=== PATIENT | male | born 1965 | race Caucasian/White ===

== ENCOUNTER 2016-10-18 12:53 | Emergency (ER) | payer SELFPAY ==
--- NOTE | 2016-10-18 13:45 | UC ---
Skin Complaint HPI - HPI Summary HPI Summary: SEVERAL DAYS AGO CUT LEFT 3RD FINGER WITH RAZOR. TODAY WAS WORKING WITH HYDROLIC FLUID, AREA BEGAN TO STING. SMALL DARK OBJECT, SLIVER NEAR SITE OF INJURY. TETANUS UTD TWO DAYS AGO - History of Current Complaint Chief Complaint: UCLaceration Time Seen by Provider: 10/18/16 13:12 Stated Complaint: HAND LACERATION Hx Obtained From: Patient Onset/Duration: Sudden Onset, Lasting Days, Resolved, Worse Since - TODAY Skin Exposure Onset/Duration: Days Ago Onset Severity: Mild Current Severity: Mild Location: Discrete - LEFT THIRD FINGER Character: Raised, Painful Aggravating: Nothing Alleviating: Nothing Associated Signs & Symptoms: Positive: Tenderness. Negative: Fever, Chills, Cough, Drainage, Red Streaks Related History: Trauma, Possible Reaction to: Environmental Exposure - Allergy/Home Medications Allergies/Adverse Reactions: Allergies Allergy/AdvReac Type Severity Reaction Status Date / Time No Known Allergies Allergy Verified 10/18/16 13:13 Review of Systems Constitutional: Negative Skin: Other - LEFT THIRD FINGER LUMP Eyes: Negative ENT: Negative Respiratory: Negative Cardiovascular: Negative Gastrointestinal: Negative Genitourinary: Negative Motor: Negative Neurovascular: Negative Musculoskeletal: Negative Neurological: Negative Psychological: Negative All Other Systems Reviewed And Are Negative: Yes PMH/Surg Hx/FS Hx/Imm Hx Previously Healthy: Yes - Surgical History Surgical History: None - Family History Known Family History: Negative: Blood Disorder - Social History Occupation: Employed Full-time Lives: With Family Alcohol Use: Rare Substance Use Type: None Smoking Status (MU): Never Smoked Tobacco Physical Exam Triage Information Reviewed: Yes Appearance: Well-Appearing, No Pain Distress, Well-Nourished Vital Signs: Initial Vital Signs Temp 97.6 F 10/18/16 13:14 Pulse 76 10/18/16 13:14 Resp 18 10/18/16 13:14 BP 138/101 10/18/16 13:14 Pulse Ox 99 10/18/16 13:14 Vital Signs Reviewed: Yes Eye Exam: Normal ENT Exam: Normal ENT: Positive: Normal ENT inspection, TMs normal Dental Exam: Normal Neck exam: Normal Respiratory Exam: Normal Respiratory: Positive: Chest non-tender, Lungs clear, Normal breath sounds, No respiratory distress, No accessory muscle use Cardiovascular Exam: Normal Cardiovascular: Positive: RRR, No Murmur, Pulses Normal Abdominal Exam: Normal Musculoskeletal: Positive: Strength Intact, ROM Intact, Edema @ - LEFT THIRD FINGER 1mm X 1mm RAISED AREA ON DISTAL RADIAL ASPECT OF LEFT THIRD FINGER WITH SMALL FB EVIDENT NEAR SURFACE WITH TRANSLUMINATION Neurological Exam: Normal Psychological Exam: Normal Skin: Positive: Other - LEFT THIRD FINGER 1mm X 1mm RAISED AREA ON DISTAL RADIAL ASPECT OF LEFT THIRD FINGER WITH SMALL FB EVIDENT NEAR SURFACE WITH TRANSLUMINATION - Additional Comments PROCEDURE: LEFT THIRD FINGER 1mm X 1mm RAISED AREA ON DISTAL RADIAL ASPECT OF LEFT THIRD FINGER WITH SMALL FB EVIDENT NEAR SURFACE WITH TRANSLUMINATION; FOREIGN BODY REMOVED USING SPLINTER FORCEPS SMALL AMOUNT OF PURULENT D/C FOLLOWED REMOVAL OF FB. DISCHARGE CULTURED. Course/Dx - Differential Diagnoses - Skin Complaint Differential Diagnoses: Abscess, Cellulitis, MRSA, Other - SOFT TISSUE FOREIGN BODY - Diagnoses Provider Diagnoses: SOFT TISSUE FOREIGN BODY REMOVED LEFT THIRD FINGER. >3 DAY OLD LACERATION 1CM LEFT THIRD FINGER NO REPAIR. CELLULITIS. Discharge - Discharge Plan Condition: Stable Disposition: HOME Prescriptions: Cephalexin CAP* [Keflex CAP*] 500 mg PO QID #28 cap Patient Education Materials: Finger Laceration (ED), Laceration Without Closure (ED), Soft Tissue Foreign Body (ED) Referrals: [facility] [Outside] - If Needed Radhika Medrano [Primary Care Provider] - Images Hands: 1 - LEFT THIRD FINGER 1mm X 1mm RAISED AREA ON DISTAL RADIAL ASPECT OF LEFT THIRD FINGER WITH SMALL FB EVIDENT NEAR SURFACE WITH TRANSLUMINATION
== END 2016-10-18 13:51 | disposition home or self-care (01) ==
LOC: UCEAST 12:53
DX: S61.223A Laceration with foreign body of left middle finger without damage to nail, initial encounter (principal); L03.012 Cellulitis of left finger; W26.8XXA Contact with other sharp object(s), not elsewhere classified, initial encounter; Y92.9 Unspecified place or not applicable
CPT/HCPCS: 87070; 87077; 87205; 87640; 87641; 99212; G0463